=== PATIENT | male | born 1965 | race Two or more races ===

== ENCOUNTER → 2017-09-24 | Emergency (ER) | payer SELFPAY ==
[~2017-09-24] VITALS: Ht 180.3 cm; Wt 96.6 kg
[~2017-09-24] MED LIST: ALBUTEROL SULF8.5 GM INH; Albuterol/Ipratropium 3ml neb HHN ONE; PREDNISONE20 MG ORAL
[2017-09-24 01:45] VITALS: BP 112/75
--- NOTE | 2017-09-24 02:22 | Emergency Room Report ---
History of Present Illness General Chief Complaint: Dyspnea/Respdistress Source: Patient Present Illness HPI Is a 51-year-old male with history of asthma. He present to have coughing wheezing shortness of breath. Onset for last 2 days. He is fluid or from [place]. No nausea no vomiting. No chest pain. Does have congestion runny nose. Said that his inhaler is not helping Allergies: Coded Allergies: No Known Allergies (Unverified , 09/24/17) Patient History Past Medical History: see triage record, old chart reviewed, asthma Past Surgical History: none Pertinent Family History: none Social History: Denies: smoking Immunizations: other Reviewed Nursing Documentation: PMH: Agreed, PSxH: Agreed Nursing Documentation-PMH Hx Asthma: Yes Review of Systems Eye: Denies: eye pain, blurred vision ENT: Denies: ear pain, nose congestion, throat swelling Respiratory: Reports: cough, shortness of breath, wheezing Cardiovascular: Denies: chest pain, palpitations Gastrointestinal: Denies: abdominal pain, diarrhea, nausea, vomiting Musculoskeletal: Denies: back pain, joint pain Skin: Denies: rash Neurological: Denies: headache, numbness Endocrine: Denies: increased thirst, increased urine Hematologic/Lymphatic: Denies: easy bruising All Other Systems: negative except mentioned in HPI Physical Exam Vital Signs Date Time Temp Pulse Resp B/P (MAP) Pulse Ox O2 Delivery O2 Flow Rate FiO2 09/24/17 01:26 98.2 96 18 103/64 96 Room Air vitals normal Sp02 EP Interpretation: reviewed, normal General Appearance: well appearing, no apparent distress, alert Head: normocephalic, atraumatic Eyes: bilateral eye PERRL, bilateral eye EOMI ENT: hearing grossly normal, normal pharynx Neck: full range of motion, supple, no meningismus Respiratory: chest non-tender, lungs clear, normal breath sounds, other - Nothing fits with inspiration Cardiovascular #1: regular rate, rhythm, no murmur Gastrointestinal: normal bowel sounds, non tender, no mass, no organomegaly, no bruit, non-distended Musculoskeletal: back normal, gait/station normal, normal range of motion Psychiatric: mood/affect normal Skin: warm/dry Medical Decision Making Diagnostic Impression: Primary Impression: Acute viral bronchiolitis ER Course Patient with a viral bronchitis with bronchospasm. It turned out that his inhaler is a long-acting beta agonist. He felt better after breathing treatment and steroid. We'll discharge home. No evidence of ACS, PE, dissection or pneumonia to name a few. Last Vital Signs Date Time Temp Pulse Resp B/P (MAP) Pulse Ox O2 Delivery O2 Flow Rate FiO2 09/24/17 01:57 100 20 100 Room Air 09/24/17 01:45 98.2 112/75 Status: improved Disposition: HOME, SELF-CARE Condition: Stable Scripts Prednisone* (PREDNISONE*) 20 Mg Tablet 60 MG ORAL DAILY, #12 TAB Prov: BROOKE HALL M.D. 09/24/17 Albuterol Sulfate* (ALBUTEROL SULFATE MDI*) 8.5 Gm Hfa.aer.ad 2 PUFF INH Q4H Y for cough/wheezing, #1 EA 0 Refills Prov: BROOKE HALL M.D. 09/24/17 Additional Instructions: Followup with your DrTory in 7 days. Return if symptom worsen. BROOKE HALL M.D. Sep 24, 2017 02:22
[2017-09-24 02:27] VITALS: BP 112/75
== END | disposition home or self-care (01) ==
LOC: EMR 01:58
DX: J21.8 Acute bronchiolitis due to other specified organisms (principal); B34.9 Viral infection, unspecified; J45.909 Unspecified asthma, uncomplicated
CPT/HCPCS: 94640; 94664; 99283; J7512; J7620